=== PATIENT | male | born 1975 ===

== ENCOUNTER 2018-12-04 18:51 | Emergency (ER) | payer BC ==
[2018-12-04] MEDS ORDERED: Ketorolac 60 MG/2 ML SDV IM ONE (19:12)
--- NOTE | 2018-12-04 19:13 | EDM.PDOC ---
ED HPI GENERAL MEDICAL PROBLEM - General Chief Complaint: General Stated Complaint: PAIN IN RT RIB AREA Time Seen by Provider: 12/04/18 19:07 - History of Present Illness INITIAL COMMENTS - FREE TEXT/NARRATIVE: HISTORY AND PHYSICAL: History of present illness: The patient is a healthy 43-year-old male who presents with complaints of rib pain and injury 2 weeks ago that he has been seeing a chiropractor for which seemed to worsen today. He said he injured the right anterior chest wall while playing hockey 2 weeks ago and was just dealing with the discomfort and it was improving and he has seen the chiropractor twice for alignment and treatment of the ribs, the last time was today. He said that after the manipulation he felt good but then the pain suddenly intensified. It is located in the same area of the right anterior chest wall and is not involving his abdomen or back. He has no shortness of breath fever chills or upper respiratory symptoms and no new trauma that he is aware of. He is only taking [id number] Advil as needed every 6 hours and did not take any prior to coming here Review of systems: As per history of present illness and below otherwise all systems reviewed and negative. Past medical history: As per history of present illness and as reviewed below otherwise noncontributory. Surgical history: As per history of present illness and as reviewed below otherwise noncontributory. Social history: No reported history of drug or alcohol abuse. Family history: As per history of present illness and as reviewed below otherwise noncontributory. Physical exam: General: Well-developed well-nourished man who is nontoxic and looks uncomfortable in the room and prefers to remain standing. Vital signs were noted by me HEENT: Atraumatic, normocephalic, negative for conjunctival pallor or scleral icterus, mucous membranes moist, throat clear, neck supple, nontender, trachea midline. Lungs: Clear to auscultation, breath sounds equal bilaterally, chest tender with palpation of the right anterior lower chest wall extending laterally without any ecchymosis erythema defects deformities or crepitus. There is no work of breathing wheezing or stridor Heart: S1S2, regular rate and rhythm no overt murmurs Abdomen: Soft, nondistended, nontender. Negative for masses or hepatosplenomegaly. Negative for costovertebral tenderness. Pelvis: Deferred Genitourinary: Deferred. Rectal: Deferred. Extremities: Atraumatic, full range of motion without defects or deficits Neurovascular unremarkable. Neuro: Awake, alert, oriented. Cranial nerves II through XII unremarkable. Cerebellum unremarkable. Motor and sensory unremarkable throughout. Exam nonfocal. Diagnostics: X-ray of right ribs with chest Therapeutics: Toradol Impression: Right chest wall/rib pain acute on subacute Definitive disposition and diagnosis as appropriate pending reevaluation and review of above. Right Chest Pain Score (Numeric/FACES): 10 - Related Data Allergies Allergy/AdvReac Type Severity Reaction Status Date / Time No Known Allergies Allergy Verified 12/04/18 19:14 Home Meds: Home Meds Desvenlafaxine Succinate [Desvenlafaxine Succinate ER] 50 mg PO DAILY 12/04/18 [ History] Enalapril Maleate 20 mg PO DAILY 12/04/18 [History] amLODIPine Besylate [Amlodipine Besylate] 5 mg PO DAILY 12/04/18 [History] hydroCHLOROthiazide [Hydrochlorothiazide] 25 mg PO DAILY 12/04/18 [History] ED ROS GENERAL - Review of Systems Review Of Systems: ROS reveals no pertinent complaints other than HPI. ED EXAM, GENERAL - Physical Exam Exam: See Below (See dictation) Course - Vital Signs Last Recorded V/S: Last Vital Signs Temp 36.6 C 12/04/18 19:08 Pulse 101 H 12/04/18 19:08 Resp BP 167/107 H 12/04/18 19:08 Pulse Ox 98 12/04/18 19:08 - Orders/Labs/Meds Meds: Medications Discontinued Medications Generic Name Dose Route Start Last Admin Trade Name Freq PRN Reason Stop Dose Admin Ketorolac Tromethamine 60 mg 12/04/18 19:12 12/04/18 19:27 Toradol IM 12/04/18 19:13 60 mg ONETIME ONE Administration Departure - Departure Time of Disposition: 20:17 Disposition: Home, Self-Care 01 Condition: Good Clinical Impression: Right-sided chest wall pain - Discharge Information Referrals: Casimiro Mosquera MD [Primary Care Provider] - Forms: ED Department Discharge Additional Instructions: The following information is given to patients seen in the emergency department who are being discharged to home. This information is to outline your options for follow-up care. We provide all patients seen in our emergency department with a follow-up referral. The need for follow-up, as well as the timing and circumstances, are variable depending upon the specifics of your emergency department visit. If you don't have a primary care physician on staff, we will provide you with a referral. We always advise you to contact your personal physician following an emergency department visit to inform them of the circumstance of the visit and for follow-up with them and/or the need for any referrals to a consulting specialist. The emergency department will also refer you to a specialist when appropriate. This referral assures that you have the opportunity for followup care with a specialist. All of these measure are taken in an effort to provide you with optimal care, which includes your followup. Under all circumstances we always encourage you to contact your private physician who remains a resource for coordinating your care. When calling for followup care, please make the office aware that this follow-up is from your recent emergency room visit. If for any reason you are refused follow-up, please contact the [facility] emergency department at and ask to speak to the emergency department charge nurse. [facility] Primary care- [place] [address] Use ice to all areas of discomfort for the next 2 days and after any activities. Use medications as prescribed, diclofenac which she may take it during the daytime and the muscle relaxer only when you're at home. His is likely a muscle spasm that needs to relax slowly so it may take several days. Patient to improve. Please call and schedule a follow-up appointment in the clinic for reevaluation and further care and return to ER as needed and as discussed
--- NOTE | 2018-12-04 20:08 | CR ---
Indication: Right side pain. Sports injury 2 weeks ago. Technique: A PA view of the chest was obtained. Three views of the right ribs routine. Comparison: None Findings: The heart is normal in size. The lungs are clear. No infiltrate, pleural effusion, or pneumothorax is identified. No displaced right rib fractures are identified. Impression: No displaced right rib fractures. No acute cardiopulmonary process. Dictated by Tonya Flynn MD @ Dec 04 2018 8:05PM Signed by Dr. Tonya Flynn @ Dec 04 2018 8:06PM
== END 2018-12-04 20:22 | disposition home or self-care (01) ==
LOC: MW.ED 18:51
DX: R07.89 Other chest pain (principal); R07.81 Pleurodynia; Z79.899 Other long term (current) drug therapy
CPT/HCPCS: 71101; 96372; 99283; J1885; 99282